=== PATIENT | male | born 1965 | race Caucasian/White ===

== ENCOUNTER → 2016-04-18 | Outpatient (CLI) | payer BC ==
--- NOTE | 2016-04-18 07:59 | DIAGNOSTIC IMAGING REPORT ---
GI SERIES W/AIR ROUTINE CLINICAL HISTORY: DYSPHAGIAwith solids and liquids sticking in sternal area. COMPARISON STUDY: None. FLUOROSCOPY TIME: 3.6 minutes. 24 images obtained. FINDINGS: The patient swallowed barium without difficulty. The esophagus is normal in course, caliber, motility. No hiatus hernia. No gastroesophageal reflux. No gastric ulcerations. The duodenal bulb and duodenal C sweep are within normal limits. The barium tablet passed without difficulty. IMPRESSION: Normal upper GI series. Electronically signed by: Star Huffman M.D. 04/18/2016 8:10 AM Dictated Date/Time: 04/18/2016 7:56 AM
== END | disposition home or self-care (01) ==
LOC: C.RAD 07:27
PROVIDERS: ATTEND Internal Medicine
DX: R13.10 Dysphagia, unspecified (principal)

== ENCOUNTER 2024-07-07 00:21 | Observation (INO) ==
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
[2024-07-07 01:01] LABS: iSTAT Creatinine 1.3 mg/dl (0.6-1.3); iSTAT Hemoglobin 13.9 g/dl (14.0-18.0); iSTAT Ionized Calcium 1.15 mmol/l (1.12-1.32); iSTAT Potassium 3.7 mmol/L (3.3-5.0)
[2024-07-07 01:08] LABS: Basophils # (auto) 0.07 K/uL (0.00-0.20); Basophils % (auto) 1.1 %; Eosinophils # (auto) 0.38 K/uL (0.00-0.50); Eosinophils % (auto) 5.9 %; Hematocrit (blood only) 41.7 % (42.0-52.0); Hemoglobin 14.1 g/dl (14.0-18.0); Immature Granulocytes # (auto) 0.01 K/uL (0.01-0.20); Immature Granulocytes % (auto) 0.2 %; Mean Corpuscular Hemoglobin 28.1 pg (25.0-34.0); Mean Corpuscular Hgb Conc 33.8 g/dL (32.0-36.0); Mean Corpuscular Volume 83.2 fL (80.0-100.0); Mean Platelet Volume 10.9 fL (9.4-12.4); Monocytes # (auto) 0.54 K/uL (0.11-0.59); Monocytes % (auto) 8.4 %; Neutrophils # (auto) 3.81 K/uL (1.40-6.50); Neutrophils % (auto) 59.4 %; Platelet Count 195 K/uL (130-400); RDW Coefficient of Variation 13.4 % (11.5-14.5); RDW Standard Deviation 40.4 fL (36.4-46.3); Red Blood Count 5.01 M/uL (4.70-6.10); White Blood Count 6.41 K/ul (4.8-10.8)
[2024-07-07] MEDS: OPTIRAY 320 125ml IV ONE (01:09)
[2024-07-07 01:23] LABS: Albumin Globulin Ratio 1.4 (0.9-2); Albumin Level 4.1 gm/dl (3.4-5.0); BUN Creatinine Ratio 20.2 (10-20); Bilirubin,Total 0.3 mg/dl (0.2-1.0); Calcium 8.5 mg/dl (8.6-10.3); Creatinine Clr Calc Pharmacy 77.1 ml/min; Globulin 2.9 gm/dl (2.5-4.0); Potassium 3.7 mmol/L (3.5-5.1)
[2024-07-07 01:30] LABS: Troponin I High Sensitivity 4.7 pg/ml (0-20)
--- NOTE | 2024-07-07 01:51 | XRay Report ---
EXAM: XR chest 1V portable CLINICAL HISTORY: Chest pain, nonspecific. TECHNIQUE: An X-ray image of the chest is obtained in AP projection. COMPARISON: Prior X ray and CT chest 12/12/2019. A recent CT angiography of the chest on 07/07/2024 00:10:00 OXIDATION ENGINEER is also taken into consideration. FINDINGS: Pulmonary Parenchyma: Prominent hilar vascular markings suggesting congestion (stable). Thin linear shadows at right medial basal region and near the left costophrenic recess suggestive of small atelectatic bands (stable). The rest of both Lungs are clear bilaterally. No evidence of consolidation or collapse. No evidence of pleural effusion or pleural thickening. Heart and Mediastinum: The cardiac shadow is displaying upper limit of normal size (stable). No mediastinal widening or masses. No hilar or mediastinal lymphadenopathy. Bony Thorax: Old healed fracture at the posterior segment of the right 9th rib (stable). Soft Tissues: Soft tissues overlying the chest wall are unremarkable. Overlying ECG leads are seen. IMPRESSION: 1. Prominent hilar vascular markings suggesting congestion (stable). 2. No interval changes. 3. No acute cardiopulmonary abnormalities are identified. Electronically signed by Marcelo Davis 07-07-2024 01:51 AM
--- NOTE | 2024-07-07 01:57 | CT Scan Report ---
EXAM: CT angio chest PE protocol CLINICAL HISTORY: Chest Pain, eval for PE TECHNIQUE: Contiguous axial images were obtained from the neck base through the upper abdomen following intravenous administration of iodinated contrast material. Angiographic images were processed, 3D MIP images were acquired for interpretation. If IV contrast material had not been administered, the likelihood of detecting abnormalities relevant to the patient's condition would have been substantially decreased. Coronal and sagittal 3-D MIPs were likewise performed and indicated to increase the sensitivity of detectin diffuse clinically relevant pathology. CT scan was performed according to ALARA (as low as reasonable achievable). COMPARISON: dec 11 20:53:28 GRIT BLASTER. FINDINGS: Few atelectatic bands are noted involving bilateral lower lobes. Old healed fracture of right eighth rib. Adequate contrast bolus without evidence of pulmonary embolism. The central airways are patent. The lungs are clear. No pleural effusion. The heart, aorta, and pulmonary arteries are of normal size and configuration. There are no appreciable coronary artery and aortic atherosclerotic calcifications. No pericardial effusion is identified. The thyroid is unremarkable. No mediastinal, hilar, or axillary lymphadenopathy is noted. No suspicious lytic or sclerotic osseous lesions are identified. IMPRESSION: 1. No evidence of pulmonary embolism or pulmonary disease. 2. Few atelectatic bands are noted involving bilateral lower lobes.-stable. 3. Old healed fracture of right eighth rib.-stable. 4. No other new interval abnormality since prior study. Electronically signed by Declan Owen 07-07-2024 01:56 AM
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
[2024-07-07] MEDS ORDERED: ACETAMINOPHEN 325 MG TAB PO PRN (04:55)
[2024-07-07] MEDS ORDERED: NITROGLYCERIN SL 0.4 MG/TAB TAB SL PRN (04:55)
[2024-07-07] MEDS ORDERED: ALBUTEROL HFA 8 GM INHALER INH PRN (04:55)
[2024-07-07] MEDS: SODIUM CHLORIDE 0.9% 1,000 ML IV SCH (05:00)
[2024-07-07 06:44] LABS: Basophils # (auto) 0.05 K/uL (0.00-0.20); Basophils % (auto) 0.8 %; Eosinophils # (auto) 0.37 K/uL (0.00-0.50); Hematocrit (blood only) 42.1 % (42.0-52.0); Hemoglobin 14.4 g/dl (14.0-18.0); Immature Granulocytes # (auto) 0.01 K/uL (0.01-0.20); Immature Granulocytes % (auto) 0.2 %; Lymphocytes # (auto) 1.46 K/uL (1.20-3.40); Lymphocytes % (auto) 23.9 %; Mean Corpuscular Hemoglobin 28.4 pg (25.0-34.0); Mean Corpuscular Hgb Conc 34.2 g/dL (32.0-36.0); Mean Platelet Volume 10.9 fL (9.4-12.4); Monocytes # (auto) 0.59 K/uL (0.11-0.59); Monocytes % (auto) 9.6 %; Neutrophils # (auto) 3.64 K/uL (1.40-6.50); Neutrophils % (auto) 59.5 %; Platelet Count 195 K/uL (130-400); RDW Coefficient of Variation 13.5 % (11.5-14.5); RDW Standard Deviation 40.5 fL (36.4-46.3); Red Blood Count 5.07 M/uL (4.70-6.10); White Blood Count 6.12 K/ul (4.8-10.8)
[2024-07-07 07:00] LABS: BUN Creatinine Ratio 19.6 (10-20); Calcium 8.5 mg/dl (8.6-10.3); Creatinine Clr Calc Pharmacy 98.5 ml/min; Magnesium 1.9 mg/dl (1.7-2.4); Potassium 3.7 mmol/L (3.5-5.1)
[2024-07-07 07:08] LABS: Troponin I High Sensitivity 4.5 pg/ml (0-20)
[2024-07-07 07:30] LABS: Estimated Average Glucose 120 mg/dl; Hemoglobin A1C 5.8 % (4.5-5.6)
[2024-07-07] MEDS: ROSUVASTATIN CALCIUM 20 MG TAB PO SCH (08:58)
[2024-07-07] MEDS: MONTELUKAST SODIUM 10 MG TABLET PO SCH (08:58)
[2024-07-07] MEDS: DOXAZosin MESYLATE 4 MG TAB PO SCH (08:58)
[2024-07-07] MEDS: FLUTICASONE/VILANTEROL 200/25MCG 14 PUFFS/INHALER INH SCH (08:58)
--- OUTSIDE RECORDS SUMMARY | 2024-07-07 11:00 | External Medical Summary | Summary of Care ---
Author Name Unknown Organization [facility] Address [address] [place] [address] Phone [phone] Care Team Providers Care Senior Patient Account Representative Name Role Phone LesEron pedro Primary Care Provider +[phone] Reason for Visit * Reason Comments Pulmonary Function Test Spirogram with mirna celis Encounter Details Date Type Department Care Team (Latest Contact Info) Description 06/02/2024 1:30 PM EST PulmDiagnostic Pulmonary Function Lab, [facility] [address] [facility] [place] [address] [address], [address] [facility] [place] [address] Mild persistent asthma without complication* Allergies No known active allergiesdocumented as of this encounter (statuses as of 06/02/2024) Medications Ibuprofen 800 MG Oral Tablet (Motrin) Take 1 Tablet by mouth every 8 hours as needed for Pain, Moderate. 90 Tablet 4 07/28/2022 5:37 PM EDT 3 Active Albuterol Sulfate HFA 108 (90 Base) MCG/ACT Inhalation Aerosol SolutionIndicatio ns:Mild persistent asthma without complication Inhale 2 Puffs by mouth every 4 hours as needed for Wheezing. 8.5 g 5 07/27/2023 4:25 PM EDT 4 Active Wixela Inhub 250-50 MCG/ACT Inhalation Aerosol Powder Breath Activated (Fluticasone-Salm eterol) Inhale 1 Puff by mouth in the morning and 1 Puff before bedtime. 180 Each 3 05/30/2024 2:22 PM EST 4 Active Rosuvastatin Calcium 40 MG Oral Tablet (Crestor) Take 1 Tablet by mouth in the morning. 90 Tablet 3 05/30/2024 2:22 PM EST 4 Active Doxazosin Mesylate 4 MG Oral Tablet (Cardura)Indicati ons:BPH with obstruction/lower urinary tract symptoms Take 1 Tablet by mouth at bedtime. 90 Tablet 3 05/30/2024 2:22 PM EST 4 Active Montelukast Sodium 10 MG Oral Tablet (Singulair)Indica tions:Mild persistent asthma without complication Take 1 Tablet by mouth daily. 90 Tablet 05/30/2024 2:22 PM EST 5 Active predniSONE 20 MG Oral Tablet (Deltasone) Take 3 tabs for 3 days, 2 tabs for 3 days, 1 tab for 3 days, 1/2 tab for 3 days 20 Tablet 04/26/2024 4:27 PM EST 5 Active Acetaminophen 325 MG Oral Tablet (Tylenol) Take 1 Tablet by mouth every 6 hours as needed. Active Hospital, Clinic, or Other Facility Administered Medication Ordered Dose Route Frequency Start Date End Date Status Albuterol Sulfate (Proventil) (2.5 MG/3ML) 0.083% inhalation solution 2.5 mgIndications:Mild persistent asthma without complication 2.5 mg NEBULIZER ONCE PRN 05/10/2024 05/10/2025 Acti ve documented as of this encounter (statuses as of 06/02/2024) Active Problems Problem Noted Date Diagnosed Date HLA B27 (HLA B27 positive) 07/24/2022 Generalized osteoarthritis 07/24/2022 Pre-diabetes 06/05/2022 Family history of psoriatic arthritis 06/05/2022 BPH with obstruction/lower urinary tract symptom s 04/25/2022 Elevated prostate specific antigen (PSA) 023 Mixed hyperlipidemia 04/25/2022 Arthritis 04/25/2022 BMI 34.0-34.9,adult 06/10/2020 Overview (06/10/2020): 229 Mild persistent asthma without complication 04/13 Rosacea 10/23/2015 Sensorineural hearing loss 11/15/2012 Overview (11/15/2012): LEFT since documented as of this encounter (statuses as of 06/02/2024) Resolved Problems Problem Noted Date Diagnosed Date Resolved Date Loss of consciousness 01/23/20202019 Asthma, moderate persistent 08/11/2018 04/29/2019 Insomnia 03/31/2014 03/09/2017 Erectile dysfunction 03/31/2014 017 ADVANCE DIRECTIVE INFORMATION 10/22/2004 03/09/2017 Overview (10/22/2004): No, Advance Directive brochure offered , patient declined. documented as of this encounter (statuses as of 06/02/2024) Immunizations Name Administration Dates Next Due COVID-19 mRNA, LNP-s, No Pre serve, 2-Dose Series (Clarisonic) 03/26/2021 COVID-19, MRNA-LNP, 24-25, P R, 30MCG/0.3ML, IM, 12YRS AND ABOVE (Clarisonic-Comirnat) 01/19/2024 HEPATITIS B VACCINE, RECOMB, 20 MCG/ML, ADULT (HEPLISAV-B) 05/10/2024 MMR - Measles/Mumps/Rubella Vaccine 03/17/1996 Pneumococcal Conjugate Vacci ne, 20-valent ([id number]) 04/25/2022 Pneumococcal Polysaccharide PPV23 (Pneumovax) 09/02/2018 Seasonal Influenza Vac., MDV , IM, 0.5 mL (Fluzone) 03/31/2014,01/09/2013 Seasonal Influenza Virus Vac cine, Unspecified Formulation 03/17/2018,03/09/2017,03/14/2016,03/31,01/09/2013,01/25/2010,01/26/2009 Seasonal Influenza, PF, 6 M & above, IM , (FluLaval or Fluzone) 03/06/2023,04/25/2022,03/29/2021,01/22,04/29/2019,03/17/2018,03/09/2017 Seasonal Influenza, Quadriva lent, No Preserve, IM 03/14/2016,04/12/2015 Seasonal Influenza, Trivalen t, (IIV3), PF, (Fluzone) 01/05/2024 TDAP (age 10 and older)(Boostrix) 10/11/2012 TDAP, Age 7 and older, IM (Adacel) 01/05/2024 Zoster Vaccine Recombinant (Shingrix) 10/28/2019 ,04/29/2019 documented as of this encounter Social History Tobacco Use Types Packs/Day Years Used Date Smoking Tobacco: Never Smokeless Tobacco: Never Tobacco Cessation:Counseling Given: Not Answered Alcohol Use Standard Drinks/Week Comments Yes 0.8 (1 standard drink = 0.6 oz p ure alcohol) beer 2-3/mo PHQ-2 Answer Date Recorded PHQ Adult Total Score 0 04/25/2024 Hunger Vital Sign Answer Date Recorded Within the past 12 months, y ou worried that your food would run out before you got the money to buy more. Never true 04/27/19 25 Within the past 12 months, t he food you bought just didn't last and you didn't have money to get more. Never true 04/27/2024 Childcare Answer Date Recorded Do you feel overwhelmed with taking care of a child, family member or friend? No 04/27/2024 Does your family need help f inding childcare? (Household - for ages 0-17 years) Not on file 04/27/2024 Clothing Answer Date Recorded Have you been unable to get clothing when it was really needed? No 04/27/2024 Is your family able to get c lothes or diapers when needed? (Household - for ages 0-17 years) Not on file 04/27/2024 Personal Safety Answer Date Recorded Do you feel unsafe or have concerns for your saf ety? No 04/27/2024 Do you have concerns for you r family's safety? (Household - for ages 0-17 years) Not on file 04/27/2024 Utilities Answer Date Recorded Do you have trouble paying y our heating, water, or electric bill? No 04/27/2024 Is your family able to pay t he heat, water, or electric bill? (Household - for ages 0-17 years) Not on file 04/27/2024 Does your family have access to good internet? (Household - for ages 0-17 years) Not on file 04/27/2024 Employment Status Answer Date Recorded Are you unemployed or without regular income? No 04/27/2024 Does the household have a re gular source of income? (Household - for ages 0-17 years) Not on file 04/27/2024 Social Connections Answer Date Recorded How often do you feel lonely or isolated from th ose around you? Rarely 04/27/2024 Financial Resource Strain Answer Date R ecorded Do you have any trouble payi ng for your medications, or do you think you might in the future? No 04/27/2024 Does your family have troubl e paying for medicine? (Household - for ages 0-17 years) Not on file 04/27/2024 Transportation Needs Answer Date Record ed Do you have trouble getting a ride to medical visits or work? (Adult - for ages 18 years and over) Not on file 04/27/2024 Does your family have a hard time getting a ride to doctors visits? (Household - for ages 0-17 years) Not on file 04/27/2024 Has lack of transportation k ept you from medical appointments, meetings, work, or from getting things needed for daily living? Check all that apply. No 04/27/2024 Do you (or your family) have trouble finding or paying for a ride (transportation)? (Household - for ages 0-17 years) Not on file 04/27/2024 Housing Stability Answer Date Recorded Do you currently live in a s helter or have no steady place to sleep at night? No 04/27/2024 Do you think you are at risk of becoming homeless? (Adult - for ages 18 years and over) Not on file 04/27/2024 Does your family worry about paying for your home or becoming homeless? (Household - for ages 0-17 years) Not on file 0 04/27/2024 Are you homeless or worried that you might be in the future? No 04/27/2024 Are you (or your family) kori eless or worried that you might be in the future? (Household - for ages 0-17 years) Not on file Food Insecurity Answer Date Recorded Do you need food for this week? No 04/27/2024 Are you able to get enough f ood for your family? (Household - for ages 0-17 years) Not on file 04/27/2024 Does your family need food t his week? (Household - for ages 0-17 years) Not on file 04/27/2024 Do you always have enough fo od for your family? (Household - for ages 0-17 years) Not on file 04/27/2024 Food Insecurity Answer Date Recorded Within the past 12 months, y ou worried that your food would run out before you got the money to buy more. Never true 04/27/19 25 Within the past 12 months, t he food you bought just didn't last and you didn't have money to get more. Never true 04/27/2024 Do you need food for this week? 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 file Not on file Not on file Not on file Not on file Not on file Not on file documented as of this encounter Last Filed Vital Signs Vital Sign Reading Time Taken Comments Blood Pressure - - Pulse - - Temperature - - Respiratory Rate - - Oxygen Saturation - - Inhaled Oxygen Concentration - - Weight 105.3 kg (232 lb 1.9 oz) 06/02/2024 1:32 PM EST Height 172.5 cm (5' 7.9") 06/02/2024 1:32 PM EST Body Mass Index 35.4 06/02/2024 1:32 PM EST documented in this encounter Nursing Notes * Refugio Arenas, ASSOCIATE VETERINARIAN - 06/02/2024 1:41 PM EST Dmitriy Corley was identified by name, Date of : (1965), and . Vitals were obtained for testing. Body mass index is 35.4 kg/m. Pt does not have a smoking history. 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 Spirometry performed before and after a slow volume nebulizer treatment of 0.5ml of albuterol in 3 ml of NSS. Administrations This Visit Albuterol Sulfate (Proventil) (2.5 MG/3ML) 0.083% inhalation solution 2.5 mg Admin Date 06/02/2024 Action Given Dose 2.5 mg Route Nebulizer Documented By Refugio Arenas RRT documented in this encounter Plan of Treatment Upcoming Encounters Date Type Department Care Team (Late st Contact Info) Description 06/14/2024 1:00 PM EST Immunization/Injec tion Ancillary [facility] [address] [facility] [place] [address] Nurse Laurent Capone [facility] [address] [facility] [place] [id number] 11/15/2024 1:40 PM EDT Office Visit Family Practice [facility] [address] [facility] [place] [address] Eron Figueroa, DO [address] [facility] [place] [id number] Pending Results Name Type Priority Associated Diagnoses Date /Time SPIROMETRY B/A BRONCHODILATOR Procedures Routine Mild persistent asthma without complication 06/02/2024 1:33 PM EST Scheduled Procedures Name Priority Associated Diagnoses Date/Ti me COLONOSCOPY FLEXIBLE PROXIMA L DIAGNOSTIC Recall History of colonic polyps Health Maintenance Due Date Last Done Comments HIV Screening 1981 Cologuard 06/20/2011 Fecal Occult Blood Test 06/20/2011 Sigmoidoscopy 06/20/2011 COVID-19 Vaccine ( season) 2024 01/19/2024, 03/26/2021 Hepatitis B Vaccine (2 of 2 - CpG 2-dose series) 06/07/2024 05/10/2024 HbA1c 01/10/2025 01/11/2024, 04/25/2022 Depression Screening 04/25/2025 04/25/2024 Lipid Panel 01/10/2029 01/11/2024, 12/14, 04/25/2022, Additional history exists Colonoscopy 05/11/2029 05/11/2024, 04/14, 01/19/2023, Additional history exists Colorectal Cancer Screening 05/11/2029 DTap/Tdap Vaccines (3 - Td or Tdap) 01/04/2034 01/05/2024, 10/11/2012 Zoster Vaccines Completed 10/28/2019, 04/29/2019 Pneumococcal Vaccine: 50+ Years Completed 04/25/2022, 09/02/2018 Influenza Vaccine (FLU shot) Completed 01/05/2024, 03/06/2023, 04/25/2022, Additional history exists RETIRED - COLONOSCOPY-ANNUAL AGES 18-100 Discontinued 05/11/2024, 05/11/2024, 01/19/2023, Additional history exists RETIRED - COLONOSCOPY-EVERY 5 YRS AGES 18-100 Discontinued 05/11/2024, 05/11/2024, 01/19/2023, Additional history exists HPV (Gardasil) Vaccine Aged Out No lo nger eligible based on patient's age to complete this topic MENINGOCOCCAL (MENACTRA/MENVEO) Aged Out No longer eligible based on patient's age to complete this topic Meningitis B Vaccine (Bexsero/Trumemba) Aged Out No longer eligible based on patient's age to complete this topic documented as of this encounter Medical Devices Implanted Type Area Injection Moulding Machine Operator Device Identifier Shelf Expiration Date Model / Serial / Lot Hemostatic Clip Res 235cm - [id number] Implanted:Qty: 2 on 01/19/2023 by Reinaldo Valdez MD at ENDOSCOPY [facility] : ENDOSCOPY 06/12/2025 [id number] / / [id number] Description:placed on sigmoi d polypectomy site documented as of this encounter Procedures Procedure Name Priority Date/Time Associated Diagnosis Comments SPIROMETRY B/A BRONCHODILATOR Routine 06/02/2024 1:33 PM EST Mild persistent asthma without complication documented in this encounter Visit Diagnoses Diagnosis Mild persistent asthma without complication- Primary Unspecified asthma documented in this encounter Administered Medications Active Administered Medications - up to 3 most recent administrations Medication Order MAR Action Action Date Dose Rate Site Albuterol Sulfate (Proventil) (2.5 MG/3ML) 0.083% inhalation solution 2.5 mg 2.5 mg, Nebulizer, ONCE PRN Other, Testing, Starting on Thu05/10/24 at 1533, Until Thu05/10/25 at 1532, For 365 days, Only one type of albuterol product should be administered (Nebulizer or Inhaler). Please select and document on the appropriate albuterol product order.Indications:Mild persistent asthma without complication Given 06/02/2024 1:31 PM EST 2.5 mg documented in this encounter Care Teams Senior Patient Account Representative Relationship Specialty Start Date End Date Eron Figueroa DO [address] [place] [address] PCP - General Family Medicine 10/17/16 documented as of this encounter
--- OUTSIDE RECORDS SUMMARY | 2024-07-07 11:00 | External Medical Summary | Summary of Care ---
Author Name Unknown Organization [facility] Address [address] [place] [address] Phone [phone] Care Team Providers Care Direct Care Supervisor Name Role Phone LesEron pedro Primary Care Provider [phone] [phone] Reason for Visit * Reason Comments Outpatient Testing Encounter Details Date Type Department Care Team (Late st Contact Info) Description 06/02/2024 2:40 PM EST Laboratory Laboratory, [facility] [address] [place] [id number] [facility] [address] [place] [address] Elevated prostate specific antigen (PSA) Allergies No known active allergiesdocumented as of [...] mRNA, LNP-s, No Pre serve, 2-Dose Series (ScoreBig) 03/26/2021 COVID-19, MRNA-LNP, 24-25, P R, 30MCG/0.3ML, IM, 12YRS AND ABOVE (Pfizer-Comirnaty) 01/19/2024 HEPATITIS B VACCINE, RECOMB, 20 MCG/ML, ADULT (HEPLISAV-B) 05/10/2024 MMR - Measles/Mumps/Rubella Vaccine 03/17/1996 Pneumococcal Conjugate Vacci ne, 20-valent ([id number]) 04/25/2022 Pneumococcal Polysaccharide PPV23 (Pneumovax) 09/02/2018 Seasonal [...] Date Smoking Tobacco: Never Smokeless Tobacco: Never Alcohol Use Standard Drinks/Week Comments Yes 0.8 [...] on file documented as of this encounter Plan of Treatment Upcoming Encounters Date Type Department Care Team (Late st Contact Info) Description 06/14/2024 1:00 PM EST Immunization[facility] [address] [place] [address] Nurse Estelita Fam [facility] [address] [place] [address] [address] 11/15/2024 1:40 PM EDT Office Visit Family [facility] [place] [address] [place] [address] Eron Figueroa DO [address] [place] [address] Pending Results Name Type Priority Associated Diagnoses Date /Time PSA Lab Routine Elevated prostate specific antigen (PSA) 06/02/2024 2:43 PM EST Scheduled Procedures Name Priority Associated Diagnoses Date/Ti me COLONOSCOPY FLEXIBLE PROXIMA L DIAGNOSTIC Recall History of colonic polyps Health Maintenance Due Date Last Done Comments HIV Screening 1981 Cologuard 06/20/2011 Fecal Occult Blood Test 06/20/2011 Sigmoidoscopy 06/20/2011 COVID-19 Vaccine (3 - season) 2024 01/19/2024, 03/26/2021 Hepatitis B Vaccine [...] this encounter Medical Devices Implanted Type Area Physical Geographer Device Identifier Shelf Expiration Date Model / Serial / Lot Hemostatic Clip Res 235cm - [id number] Implanted:Qty: 2 on 01/19/2023 by Reinaldo Valdez MD at ENDOSCOPY [facility] : ENDOSCOPY 06/12/2025 [id number] / / [id number] Description:placed on sigmoi d polypectomy site documented as of this encounter Visit Diagnoses Diagnosis Elevated prostate specific antigen (PSA) documented in this encounter Care Teams Direct Care Supervisor Relationship Specialty Start Date End Date Eron Figueroa DO [address] [place] [address] PCP - General Family Medicine 10/17/16 documented as of this encounter
--- OUTSIDE RECORDS SUMMARY | 2024-07-07 11:00 | External Medical Summary ---
Author Name Unknown Address Unknown Organization K01:[facility] [address] [place] [address] Laboratory Report Ordering Provider Test Date Status CARLYLE BAEZA 06/02/2024 14:43:09 Final Observation Date Value Abnormality Reference (Units ) Status PSA 06/02/2024 14:43:09 4.29 Above high normal <3 .10 (ng/mL) Final Performing Location [facility] - [address] [place] [address]
--- OUTSIDE RECORDS SUMMARY | 2024-07-07 11:00 | External Medical Summary | Summary of Care ---
Author Name Unknown Organization [facility] Address [address] [place] [place] [place] [address] Phone [phone] Care Team Providers Care Stock Control Clerk Name Role Phone LesEron pedro Primary Care Provider +1 [phone] Reason for Visit * Reason Comments Immunizations Encounter Details Date Type Department Care Team (Late st Contact Info) Description 06/16/2024 1:30 PM EST Immunization/I njection Ancillary [facility] [address] [place] [address] [place], Nurse [facility] 200 [facility] [place] [address] Vaccine for viral hepatitis* Allergies No known active allergiesdocumented as of this encounter (statuses as of 06/16/2024) Medications Ibuprofen 800 MG Oral Tablet (Motrin) [...] as of this encounter (statuses as of 06/16/2024) Active Problems Problem Noted Date Diagnosed Date [...] as of this encounter (statuses as of 06/16/2024) Resolved Problems Problem Noted Date Diagnosed Date Resolved Date Loss of consciousness 01/23/20202019 Asthma, moderate persistent 08/11/2018 04/29/2019 Insomnia 03/31/2014 03/09/2017 Erectile dysfunction 03/31/2014 017 ADVANCE DIRECTIVE INFORMATION 10/22/2004 03/09/2017 Overview (10/22/2004): No, Advance Directive brochure offered , patient declined. documented as of this encounter (statuses as of 06/16/2024) Immunizations Name Administration Dates Next Due COVID-19 mRNA, LNP-s, No Pre serve, 2-Dose Series (PredictSpring) 03/26/2021 COVID-19, MRNA-LNP, 24-25, P R, 30MCG/0.3ML, IM, 12YRS AND ABOVE (PredictSpring-ComirnatReSnap) 01/19/2024 HEPATITIS B VACCINE, RECOMB, 20 MCG/ML, ADULT (HEPLISAV-B) 06/16/2024,05/10/2024 MMR - Measles/Mumps/Rubella Vaccine 03/17/1996 Pneumococcal Conjugate Vacci ne, 20-valent ([id number]) 04/25/2022 Pneumococcal Polysaccharide PPV23 (Pneumovax) 09/02/2018 Seasonal [...] on file documented as of this encounter Nursing Notes * Tram Scott LPN - 06/16/2024 1:40 PM EST Pre-Administration Time Out Procedure Performed: Yes Patient Identified (Ask Name/Date of ): Yes Does the patient have a fever greater than 101 degrees today? No Patient allergic to latex? No Has the patient ever fainted after receiving an injection? No VFC Stock: No Immunization(s) verified: Yes, Immunization Name: Heplisav-B (Hepatitis B Vaccine Adult), VIS Sheet(s) given: Yes Verified Side and Site: Yes Verified Shot(s) with Parent(s)/Patient: Yes documented in this encounter Plan of Treatment Upcoming Encounters Date Type Department Care Team (Late st Contact Info) Description 11/15/2024 1:40 PM EDT Office Visit Family Practice Mayela Capone [place] [address] [facility] [place] [address] Eron Figueroa, DO [address] [facility] [place] [address] Scheduled Procedures Name Priority Associated Diagnoses Date/Ti me COLONOSCOPY FLEXIBLE PROXIMA L DIAGNOSTIC Recall History of colonic polyps Health Maintenance Due Date Last Done Comments HIV Screening 1981 Cologuard 06/20/2011 Fecal Occult Blood Test 06/20/2011 Sigmoidoscopy 06/20/2011 COVID-19 Vaccine (2023- season) 2024 01/19/2024, 03/26/2021 HbA1c 01/10/2025 01/11/2024, 04/25/2022 Depression Screening 04/25/2025 [...] Discontinued 05/11/2024, 05/11/2024, 01/19/2023, Additional history exists Hepatitis B Vaccine Completed 06/16/2024, HPV (Gardasil) Vaccine Aged Out No lo nger eligible based on patient's age to complete this topic MENINGOCOCCAL (MENACTRA/MENVEO) Aged Out No longer eligible based on patient's age to complete this topic Meningitis B Vaccine (Bexsero/Trumemba) Aged Out No longer eligible based on patient's age to complete this topic documented as of this encounter Medical Devices Implanted Type Area Entertainment Lawyer Device Identifier Shelf Expiration Date Model / Serial / Lot Hemostatic Clip Res 235cm - [id number] Implanted:Qty: 2 on 01/19/2023 by Reinaldo Valdez MD at ENDOSCOPY [facility] : ENDOSCOPY 06/12/2025 [id number] / / [id number] Description:placed on sigmoi d polypectomy site documented as of this encounter Visit Diagnoses Diagnosis Vaccine for viral hepatitis- Primary Need for prophylactic vaccination and inoculation against viral hepatitis documented in this encounter Care Teams Stock Control Clerk Relationship Specialty Start Date End Date Eron Figueroa DO [address] [facility] [place] [address] PCP - General Family Medicine 10/17/16 documented as of this encounter
[2024-07-07 11:07] VITALS: BP 151/85; PULSE 75; RESP 20; TEMP 97.5; O2SAT 94
--- NOTE | 2024-07-07 12:18 | Electrocardiogram Report ---
Test Reason : Blood Pressure : */* mmHG Vent. Rate : 80 BPM Atrial Rate : 80 BPM P-R Int : 176 ms QRS Dur : 116 ms QT Int : 386 ms P-R-T Axes : 39 -16 58 degrees QTcB Int : 445 ms Normal sinus rhythm Incomplete right bundle branch block Borderline ECG When compared with ECG of 12-Dec-2019 11:55, No significant change was found Confirmed by Renato Nina ([id number]) on 07/07/2024 12:18:15 PM Referred By: REFERRED SELF Confirmed By: Renato Nina
--- NOTE | 2024-07-07 12:28 | Electrocardiogram Report ---
Test Reason : Blood Pressure : */* mmHG Vent. Rate : 71 BPM Atrial Rate : 71 BPM P-R Int : 180 ms QRS Dur : 120 ms QT Int : 416 ms P-R-T Axes : 12 -12 44 degrees QTcB Int : 452 ms Normal sinus rhythm RSR' or QR pattern in V1 suggests right ventricular conduction delay Borderline ECG When compared with ECG of 07-Jul-2024 00:35, (unconfirmed) No significant change was found Confirmed by Renato Nina ([id number]) on 07/07/2024 12:28:25 PM Referred By: REFERRED SELF Confirmed By: Renato Nina
--- NOTE | 2024-07-07 14:48 | Discharge Summary ---
Discharge Summary Date of Service July 07, 2024 Principal Dx & Hospital Course #1 = Principal Diagnosis (1) Unresponsive episode: 59-year-old male with past medical history significant for hyperlipidemia, prediabetes, mild persistent asthma, BPH, generalized osteoarthritis, elevated PSA, obesity presents with unresponsive episode. Last night around 11:20 PM patient had a coughing spell while he was standing when he suddenly passed out. Patient seems does not clearly remember the events. As per the ER, told he was sitting on the couch and started to have cough and then went unresponsive. was with him when the patient passed out. Patient thinks he passed out for 30 seconds. He says he turned purple. As per the ER , noticed he was not breathing and give 3 rescue breaths. And could feel the pulse. Patient says after 30 seconds he woke up and was tired and confused for short period of time. 911 was called and patient was brought to the hospital. Patient denies biting his tongue or shaking during the episode. No incontinence during the episode. Denies any dizziness. Denies chest pain, palpitation or shortness of breath during the episode. No blurred vision. No earache or runny nose. No sore throat. No fevers. Currently patient has no cough. Patient says because of asthma he gets these coughing spells. Denies shortness of breath. No nausea. No sweating. No abdominal pain. Normal bowel and bladder movements. Prior to the episode patient was walking and climbing steps okay. Currently hemodynamics are okay. Unresponsive episode Labs okay EKG okay, CTA chest okay Currently hemodynamics are okay Possibly vasovagal from cough Will follow serial cardiac enzymes and echo Will keep him n.p.o. for now Gentle fluids Telemetry Cardiac consult in a.m. for further recommendations Asthma mild persistent Continue home inhalers Currently stable Prediabetes Will follow-up HbA1c levels Hyperlipidemia On statin Obesity Counseling DVT prophylaxis SCDs for now Disposition Observation telemetry Full code Notes For Next Care Provider 59-year-old male with past medical history significant for hyperlipidemia, prediabetes, mild persistent asthma, BPH, generalized osteoarthritis, elevated PSA, obesity presents with unresponsive episode. On medicine, imaging showed some atelectasis. CBC showed mild elevation in eospinophilia. Patients lungs cl ear on exam. Concern for allergen induced bronchospasm, perhaps not in typical asthmatic syndrome pattern. PFTs are unremarkable, adding to prior data. Differential includes: allergen induced bronchospasm, eosinophilic pneumonia, bronchiolitis obliterans, less likely allergic broncopulmonary aspergillosis, Ch[place] Ti Syndrome. Also on differential is atypical seizures given LOC. Discussed with family at length, patient needs allergen testing outpatient, and follow up with pulmonology. Medically stable for discharge on 07/07/2024. Discharged with loratadine, prednisone, increased ICS dose, augmentin for sinusitis, epipen by request for concern for anaphylaxis. Medication Changes From Visit -prednisone, loratadine, epipen, increased dose ICS Admission HPI Per Admitting Provider 59-year-old male with past medical history significant for hyperlipidemia, prediabetes, mild persistent asthma, BPH, generalized osteoarthritis, elevated PSA, obesity presents with unresponsive episode. Last night around 11:20 PM patient had a coughing spell while he was standing when he suddenly passed out. Patient seems does not clearly remember the events. As per the ER, told he was sitting on the couch and started to have cough and then went unresponsive. was with him when the patient passed out. Patient thinks he passed out for 30 seconds. He says he turned purple. As per the ER , noticed he was not breathing and give 3 rescue breaths. And could feel the pulse. Patient says after 30 seconds he woke up and was tired and confused for short period of time. 911 was called and patient was brought to the hospital. Patient denies biting his tongue or shaking during the episode. No incontinence during the episode. Denies any dizziness. Denies chest pain, palpitation or shortness of breath during the episode. No blurred vision. No earache or runny nose. No sore throat. No fevers. Currently patient has no cough. Patient says because of asthma he gets these coughing spells. Denies shortness of breath. No nausea. No sweating. No abdominal pain. Normal bowel and bladder movements. Prior to the episode patient was walking and climbing steps okay. Currently hemodynamics are okay. Past medical history. As mentioned above Past surgical history. Colonoscopy. Right thumb surgery. Repair of left shoulder rotator cuff. Adenoidectomy. Social history. No smoking. Alcohol 2 or 3 beers per month. No drug use. Family history. Brother has psoriatic arthritis. Maternal grandmother had heart disorder. Father has hypercholesterolemia. Brother has hypertension. Paternal uncle had heart attack. Discharge Exam Gen: A&O 3 NAD HEENT: NCAT, EOMI, not icteric. External ears normal. No rhinorrhea. Moist mucous membranes. Neck: Supple, full range of motion, no observable masses, No meningeal sign. Lungs: No Respiratory distress. CV: RRR, no edema. Abdomen: Soft, nondistended, No rebound tenderness. MSK: No joint swelling, no redness. Skin: No rashes, petechiae, lesions. Normal color per patient. Neuro: Normal Gait, Grossly intact. Psych: Appropriate for situation. Updated Medication List Medication Instructions Recorded Confirmed Type montelukast 10 mg tablet 10 mg PO QAM 12/12/19 07/07/24 History (Singulair) albuterol sulfate 90 mcg/actuation 2 puff inhalation Q4H PRN 07/07/24 07/07/24 History aerosol inhaler Shortness Of Breath Or Wheezing amoxicillin 500 mg-potassium 1 tab PO BID 5 days #10 tabs 07/07/24 Rx clavulanate 125 mg tablet (Augmentin) doxazosin 4 mg tablet 4 mg PO DAILY 07/07/24 07/07/24 History epinephrine 0.3 mg/0.3 mL 0.3 mg (0.3 mL) IM Q4H PRN 07/07/24 Rx injection, auto-injector (Auvi-Q) anaphylaxis #2 ea fluticasone 500 mcg-salmeterol 50 1 inh inhalation Q12H #60 ea 07/07/24 Rx mcg/dose blistr powdr for inhalation (Wixela Inhub) loratadine 10 mg tablet 10 mg PO DAILY #30 tabs 07/07/24 Rx prednisone 20 mg tablet 40 mg (2 x 20 mg) PO DAILY 5 days 07/07/24 Rx #10 tabs rosuvastatin 40 mg tablet 40 mg PO DAILY 07/07/24 07/07/24 History Hospital Stay Data Consultations 07/07/24 01:31 ED Decision to Admit Stat Diagnostic Imagining Performed 07/07/24 00:40 CT angio chest PE protocol Stat Pending Results Patient Have Any Pending Studies at Discharge: Yes Discharge Instructions Given to Patient (Per Discharging Provider) 1. Please follow up with PCP for referrals to pulmonology and allergy medicine. 2. Please take medications as prescribed. Total Time Total Time Spent Total Time Spent (In Minutes): I spent a total of 55 minutes in direct patient care, including [id number] time with the patient and/or family, reviewing medical records, ordering and reviewing diagnostic tests, and coordinating care with other healthcare providers. This time includes: history taking, physical examination, medical decision making, counseling, ECG interpretation, imaging interpretation, lab interpretation, orders, and education, excluding time spent in the performance of separately billed services.
== END 2024-07-07 14:00 | disposition home or self-care (01) ==
LOC: 2E 00:21 → ED 00:21 → 2E 04:27